=== PATIENT | female | born 1980 | race Asian ===

== ENCOUNTER 2022-07-27 20:46 | Emergency (ER) | payer OTHER, SELFPAY ==
[2022-07-27 20:52] VITALS: BP 144/88; PULSE 96; RESP 18; TEMP 37.1; O2SAT 97; BMI 32.6
--- NOTE | 2022-07-27 22:07 | ED.PSYCH ---
HPI - Psych General Chief Complaint: Psychiatric Problem/Disorder Stated Complaint: Panic Attack Time Seen by Provider: 07/27/22 21:40 History of Present Illness HPI Narrative: 42-year-old woman accompanied by her daughter to the emergency department with concern of sadness and anxiety that she might hurt herself. Has never struggled with mental health difficulties she says until her mother was diagnosed in March of this year with cancer. She notes number of other life stressors including, upon my inquiry, having from her though it sounds like they are still social together sometimes, does living separately at this time. Other pressures do include sitting on few boards. Over the last few weeks she has had a few panic attacks. She notes they have just come out of the blue. Yesterday she spent most of the day crying. Today would not have gotten out of bed if was not for friend who was able to coax her into going out to eat. This did help her feel better but then she returned home was feeling more stressed and was cutting bola in an effort to become more centered. And then seemed to take all she could manage to keep from hurting herself as she was holding this knife. Has not had these thoughts before. Was very fearful that she might do something. Began to breathe faster increasing anxiety heart racing and feeling tingly all over consistent with some panic attacks that she has identified recently. Daughter accompanies here who has also struggled with mental health difficulties. As we contemplate treatment, she does admit that has tried lorazepam for apparent anxiety; some had been around the house. She says she just did not like the way they made her feel. Does feel that sleep is a major problem. She tried some THC gummies recently at 5 mg. Says they just made her feel lethargic and tired and did not actually sleep. She thinks that if maybe she could actually get some sleep might be able to cope better. Related Data Home Medications Medication Instructions Recorded Confirmed No Known Home Medications 07/27/22 07/27/22 Allergies Allergy/AdvReac Type Severity Reaction Status Date / Time Penicillins Allergy Vomiting Verified 07/27/22 20:57 Review of Systems Status of ROS: Reports: 6 or more systems reviewed and unremarkable except as noted in History and below PFSH PFSH Social History Smoking Status: Never smoker How often do you have a drink containing alcohol: monthly or less AUDIT-C Alcohol total score: 1 Non-prescribed substance use details: cbd edibles, low dose Exam Narrative: Exam Narrative: Pleasant. Clearly stressed. Carefully groomed. Well nourished. Tearful. Breathing easily. Mood is sad and anxious affect appropriate. Speech isn't pressured or slurred. Skin is warm and dry without evidence of self-harm. Heart is within elevated rate and a regular rhythm. Well-perfused peripherally. Const: Vital Signs, click to edit/add: Vital Signs - 24 hr 07/27/22 20:52 Temperature 98.7 F Pulse Rate [Left P ulse Oximeter] 96 Respiratory Rate 18 Blood Pressure [Ri ght Upper Arm] 144/88 H Pulse Oximetry 97 Oxygen Delivery Me thod Room Air Documenting provider has reviewed patient's vital signs: yes Course Vital Signs Vital signs: Initial Vital Signs Temperature 98.7 F 07/27/22 20:52 Temperature Source Temporal Artery Scan 07/27/22 20:52 Pulse Rate 96 07/27/22 20:52 Respiratory Rate 18 07/27/22 20:52 Blood Pressure 144/88 H 07/27/22 20:52 Blood Pressure Mean 106 07/27/22 20:52 Blood Pressure Position Sitting 07/27/22 20:52 Pulse Oximetry 97 07/27/22 20:52 Oxygen Delivery Method 07/27/22 20:52 Vital Signs Temperature 98.7 F 07/27/22 20:52 Pulse Rate 96 07/27/22 20:52 Respiratory Rate 18 07/27/22 20:52 Blood Pressure 144/88 H 07/27/22 20:52 Pulse Oximetry 97 07/27/22 20:52 Oxygen Delivery Method 07/27/22 20:52 Temperature 98.7 F 07/27/22 20:52 Pulse Rate 96 07/27/22 20:52 Respiratory Rate 18 07/27/22 20:52 Blood Pressure 144/88 H 07/27/22 20:52 Pulse Oximetry 97 07/27/22 20:52 Oxygen Delivery Method 07/27/22 20:52 MDM - Psych MDM Narrative Medical decision making narrative: I think would benefit from therapy session here and possibly anxiolytic. Lengthy assessment by Tereso at DEC. Able to schedule outpatient psychiatric follow-up in short order. Concurs that outpatient is appropriate here. Will try to help her with sleep yet tonight with a couple tabs of Zyprexa. Discharge Plan Discharge Clinical Impression: Other social stressor, Anxiety, Panic attack Patient Disposition: Home w/ Parent or Adult Condition: Improved Additional Instructions: I understand you will be spending at least tonight with your friend Rhianna. Take these 2 tablets of Zyprexa with you. If needed for sleep take 1 and if not asleep in an hour take another. Please follow-up with appointments this coming week as scheduled by Lena; his paperwork should indicate those appointment specifics. I hope the new year is better to you. If after talking to friends, family, therapist you are still feeling unsafe, please return to the emergency department. Prescriptions: No Action No Known Home Medications Follow Up/Referrals: Provider,Not a Local [Primary Care Provider] - Stand Alone Forms: [employer] Info Instructions
[2022-07-28] MEDS: OLANZapine 5 MG TAB.RAPDIS PO ×2 (00:30)
--- NOTE | 2022-07-28 00:30 | ED.NURSE ---
Pt did sign and agree to safety contract provided by [employer].
== END 2022-07-28 00:40 | disposition home or self-care (01) ==
PROVIDERS: Emergency Provider Family Medicine
DX: F41.0 Panic disorder [episodic paroxysmal anxiety] (principal); F41.9 Anxiety disorder, unspecified; Z73.3 Stress, not elsewhere classified
CPT/HCPCS: 99283; 99284; A9270

== ENCOUNTER 2022-10-24 23:08 | Emergency (ER) | payer OTHER, SELFPAY ==
[2022-10-24 23:21] VITALS: BP 139/90; PULSE 82; RESP 18; TEMP 36.9; O2SAT 99; BMI 32.4
[2022-10-24 23:30] VITALS: O2SAT 99
[2022-10-25 01:02] LABS: Basophils Absolute Auto 0.04 K/uL (0.00-0.30); Basophils Percent Auto 0.4 % (0.0-3.0); Eosinophils Absolute Auto 0.24 K/uL (0.00-0.50); Eosinophils Percent Auto 2.4 % (0.0-7.0); Hematocrit 36.2 % (33.0-51.0); Hemoglobin* 12.1 gm/dL (12.0-16.0); Immature Granulocytes Abs Auto 0.02 K/uL (0.00-0.30); Immature Granulocytes Pct Auto 0.2 %; Lymphocytes Absolute Auto 2.32 K/uL (0.90-2.90); Lymphocytes Percent Auto 23.7 % (20-44); Mean Corpuscular HGB Conc 33 gm/dL (32-36); Mean Corpuscular Hemoglobin 27 pg (26-34); Mean Corpuscular Volume 79 fL (80-100); Monocytes Percent Auto 5.9 % (0.0-11.0); Neutrophils Percent Auto 67.4 % (42.0-72.0); Platelet Count* 369 K/uL (140-440); RDW Coefficient of Variation % 12.5 % (11.5-15.5); Red Blood Count 4.56 m/uL (4.00-5.20)
[2022-10-25 01:18] LABS: Chloride* 106 mmol/L (96-114); Potassium* 3.7 mmol/L (3.6-5.1); Sodium* 137 mmol/L (135-149)
[2022-10-25 01:20] LABS: Creatinine* 1.4 mg/dL (0.5-1.5); Est. Creatinine Clearance* 45.66; Estimated Glomerular Filt Rate 48 ml/min
[2022-10-25 01:21] LABS: Blood Urea Nitrogen* 20 mg/dL (5-24); Carbon Dioxide* 22 mmol/L (20-32); Glucose* 107 mg/dL (60-115)
[2022-10-25 01:27] LABS: D Dimer Quantitative* < 0.27 ug/ml (0.00-0.50)
[2022-10-25 01:28] LABS: Slide Review Reflex No
[2022-10-25 01:43] LABS: Troponin I* < 0.01 ng/mL (0.01-0.04)
--- NOTE | 2022-10-25 01:46 | ED_ITS ---
HPI - General Adult General Date Seen: 10/25/22 Chief complaint: Shortness of Breath/Dyspnea Stated complaint: chest pain,Shortness of breath Time Seen by Provider: 10/25/22 00:06 Source: patient Mode of arrival: ambulatory Limitations: no limitations History of Present Illness HPI narrative: Patient is a 42-year-old female who comes in with 90 minutes a history of chest tightness in some pain with deep inspiration. She also feels some aching into both arms. She had some friends over this evening and was just cleaning up the kitchen after they left with her symptoms came on. This was not physical work. She thought it might be anxiety related so she went and sat down. Her symptoms improved for a while up but then came back again prompting her to come to the emergency department. She has no history of exertional chest pain. She has no risk factors for coronary artery disease. She does acknowledge significant anxiety, particularly related to her mother's cancer diagnosis. She has been on lorazepam in the past but is not currently taking anything for anxiety or depression. She did not feel anxious this evening and not feel that she was worrying about anything in particular. She denies acid reflux symptoms. Related Data Home Medications Medication Instructions Recorded Confirmed No Known Home Medications 07/27/22 10/24/22 Allergies Allergy/AdvReac Type Severity Reaction Status Date / Time Penicillins Allergy Vomiting Verified 10/24/22 23:23 Review of Systems Narrative: Review of systems is outlined above otherwise noted to be negative. [facility] Medical History (Updated 10/25/22 @ 01:45 by Homero Cardenas MD) Anxiety ?F41.9 - Anxiety disorder, unspecified (ICD-10) Surgical History (Updated 10/24/22 @ 23:36 by Jt Garsia RN) History of tubal ligation ?Z98.51 - Tubal ligation status (ICD-10) Social History Smoking Status: Never smoker Second hand tobacco smoke exposure: No How often do you have a drink containing alcohol: monthly or less AUDIT-C Alcohol total score: 1 Non-prescribed substance use: denies use Non-prescribed substance use details: cbd edibles, low dose Exam Narrative: Exam Narrative: Vitals noted. HEENT: Conjunctiva clear. Tympanic membranes are pearly white bilaterally. Pos terior pharynx is clear without erythema or exudate. Neck is supple without adenopathy, thyromegaly, carotid bruit. Lungs: Clear to auscultation in all llanos. No wheezes, rales, rhonchi. Heart: Regular rate and rhythm without murmur. There is some mild tenderness along her costochondral joints. No palpable abnormalities in the chest. Minor discomfort with deep inspiration. Abdomen: Soft and nontender. No guarding, rigidity, rebound. Bowel sounds are normal. No palpable masses. Extremities: No cyanosis or edema. Good distal pulses. Skin: No abnormalities noted of the exposed skin. Neurologic: Awake, alert, fully oriented. Neurologic exam is nonfocal. Const: Vital Signs, click to edit/add: Vital Signs - 24 hr 10/24/22 23:21 10/24/22 23:30 10/25/22 02:09 Temperature 98.5 F 98.0 F Pulse Rate [Right Pulse Oximeter] 82 79 Respiratory Rate 18 18 Blood Pressure [Ri ght Upper Arm] 139/90 H 125/70 Pulse Oximetry 99 99 99 Oxygen Delivery Me thod Room Air Room Air 10/25/22 02:10 Temperature 98.0 F Pulse Rate [Right Pulse Oximeter] 79 Respiratory Rate 18 Blood Pressure [Ri ght Upper Arm] 125/70 Pulse Oximetry Oxygen Delivery Me thod Course Course Hospital Course: Patient seen and examined. I have low index of suspicion for coronary artery disease. Her EKG shows normal sinus rhythm with no acute ST or T-wave changes. Labs are ordered. Reevaluation(s) Reevaluation #1: Her labs have all returned with normal findings including troponin, basic metabolic panel, CBC, D-dimer. Her symptoms have completely resolved without treatment. I suspect that this was anxiety related and she tends to agree. Vital Signs Vital signs: Initial Vital Signs Respiratory Effort Normal, Spontaneous, Non-Labored 10/24/22 23:20 Respiratory Depth Normal 10/24/22 23:20 Respiratory Pattern Normal 10/24/22 23:20 Vital Signs Temperature 98.5 F 10/24/22 23:21 Pulse Rate 82 10/24/22 23:21 Respiratory Rate 18 10/24/22 23:21 Blood Pressure 139/90 H 10/24/22 23:21 Pulse Oximetry 99 10/24/22 23:21 Oxygen Delivery Method Room Air 10/24/22 23:21 Temperature 98.0 F 10/25/22 02:10 Pulse Rate 79 10/25/22 02:10 Respiratory Rate 18 10/25/22 02:10 Blood Pressure 125/70 10/25/22 02:10 Pulse Oximetry 99 10/25/22 02:09 Oxygen Delivery Method Room Air 10/25/22 02:09 Medical Decision Making Lab Data Labs: Lab Results 10/25/22 Range/Units 00:15 WBC 9.80 (4.50-11.00) K/uL RBC 4.56 (4.00-5.20) m/uL Hgb 12.1 (12.0-16.0) gm/dL Hct 36.2 (33.0-51.0) % MCV 79 L (80-100) fL MCH 27 (26-34) pg MCHC 33 (32-36) gm/dL RDW Coeff of Joseluis 12.5 (11.5-15.5) % Plt Count 369 (140-440) K/uL Neut % (Auto) 67.4 (42.0-72.0) % Lymph % (Auto) 23.7 (20-44) % [place] % (Auto) 5.9 (0.0-11.0) % Eos % (Auto) 2.4 (0.0-7.0) % Baso % (Auto) 0.4 (0.0-3.0) % Neut # (Auto) 6.60 (1.7-7.0) K/uL Lymph # (Auto) 2.32 (0.90-2.90) K/uL [place] # (Auto) 0.60 (0.00-0.90) K/UL Eos # (Auto) 0.24 (0.00-0.50) K/uL Baso # (Auto) 0.04 (0.00-0.30) K/uL D-Dimer Quant (PE/DVT) < 0.27 (0.00-0.50) ug/ml Sodium 137 (135-149) mmol/L Potassium 3.7 (3.6-5.1) mmol/L Chloride 106 (96-114) mmol/L Carbon Dioxide 22 (20-32) mmol/L BUN 20 (5-24) mg/dL Creatinine 1.4 (0.5-1.5) mg/dL Estimated Creat Clear 45.66 Estimated GFR 48 ml/min Glucose 107 (60-115) mg/dL Calcium 9.0 (8.4-10.6) mg/dL Troponin I < 0.01 L (0.01-0.04) ng/mL Discharge Plan Discharge Clinical Impression: Panic attack, Chest pain Patient Disposition: Home, Self-Care Condition: Improved Additional Instructions: Tylenol or Ibuprofen for arm pain. Consider seeing your PCP to discuss anxiety meds if this recurs. Prescriptions: No Action No Known Home Medications Follow Up/Referrals: Deedee Valladares MD [Primary Care Provider] - Stand Alone Forms: [employer] Info Instructions
[2022-10-25 02:09] VITALS: BP 125/70; PULSE 79; RESP 18; TEMP 36.7; O2SAT 99
[2022-10-25 02:10] VITALS: BP 125/70; PULSE 79; RESP 18; TEMP 36.7
== END 2022-10-25 02:11 | disposition home or self-care (01) ==
PROVIDERS: Emergency Provider Family Medicine; PCP Family Medicine
DX: R07.89 Other chest pain (principal); F41.0 Panic disorder [episodic paroxysmal anxiety]
CPT/HCPCS: 36415; 80048; 84484; 85025; 85379; 93005; 94761; 99283; 99284

== ENCOUNTER 2023-09-13 21:55 | Outpatient (CLI) | payer OTHER, SELFPAY ==
--- OUTSIDE RECORDS SUMMARY | 2023-09-15 10:49 | XMS_ITS | Clinical Summary ---
Author Name Unknown Organization [facility] Address [place], [place] [address] Care Team Providers Care Medical Transcription Editor Name Role Phone Pcp, No Primary Care Provider Unavailabl e Allergies Active Allergy Reactions Criticality Noted Date Comments Penicillin G Rash,Vomiting 04/17/2016 Medications Medication Sig Dispensed Refills Start Date End Date Status multivitamin (MVI) tablet Take 1 tablet by mouth once daily. 0 04/17/2016 Active Active Problems No known active problems Immunizations Name Administration Dates Next Due COVID-19 vaccine (Kyrie-J&J) VINICIUS MARKHAM 1 Tdap 06/06/2022 Family History Medical History Relation Name Comments Good Health Father Cancer-breast Maternal Aunt x 2 Cancer Mother b-cell lymphoma Good Health Mother Cancer-breast Other 3 cousins, Mat Relation Name Status Comments Father Maternal Aunt Mother Other Social History Tobacco Use Types Packs/Day Years Used Date Smoking Tobacco: Never Smokeless Tobacco: Never Tobacco Cessation:Counseling Given: Yes Alcohol Use Standard Drinks/Week Comments Yes 0 (1 standard drink = 0.6 oz pur e alcohol) occasional PHQ-2 Answer Date Recorded PHQ-2 TOTAL SCORE 1 06/06/2022 Social Connections Answer Date Recorded Frequency of Communication with Friends and Fami ly Not on file 06/06/2022 Sex and Gender Information Value Date Recorded Sex Assigned at Not on file Gender Identity Not on file Sexual Orientation Not on file Obstetrics History Last Filed Vital Signs Vital Sign Reading Time Taken Comments Blood Pressure 114/74 06/06/2022 10:52 AM [employer] Pulse 81 06/06/2022 10:52 AM [employer] Temperature 37.2 ??C (99 ??F) 04/17/2016 9:14 AM CDT Respiratory Rate - - Oxygen Saturation 97% 06/06/2022 10:52 AM [employer] Inhaled Oxygen Concentration - - Weight 87.2 kg (192 lb 3.2 oz) 06/06/2022 10:52 AM [employer] Height 161 cm (5' 3.39) 04/17/2016 9:14 AM CDT Body Mass Index 33.63 04/17/2016 9:14 AM CDT Plan of Treatment Health Maintenance Due Date Last Done Comments HIV for age 15-65 1996 Hepatitis C screening for ag e 18-79 1999 Pap test for age 21-65 2002 BMI (ht and wt on same day) for age 18+ 04/17/2017 04/17/2016 COVID-19 vaccine series ( season) 2023 03/22/2021 Influenza for age 9-49 03/28/2023 Depression screening for age 12+ 06/06/2023 06/06/2022, 04/17/2016, 04/17/2016 Tetanus booster 06/06/2032 06/06/2022 Tdap Completed 06/06/2022 Pneumococcal series for age 6-64 Aged Out No longer eligible b ased on patient's age to complete this topic Care Teams Medical Transcription Editor Relationship Specialty Start Date End Date Pcp, No . PCP - General 12/13/19
== END 2023-09-13 21:56 | disposition home or self-care (01) ==
LOC: AMB 09-15 10:47
PROVIDERS: PCP Family Medicine; Visit Provider Family Medicine
DX: R10.9 Unspecified abdominal pain (principal); R55 Syncope and collapse
CPT/HCPCS: A0998

== ENCOUNTER 2023-10-08 20:59 | Outpatient (CLI) | payer OTHER, SELFPAY | END 2023-10-08 21:00 | disposition home or self-care (01) | LOC: AMB 10-10 11:59 | PROVIDERS: PCP Family Medicine; Visit Provider Emergency Medicine | DX: R06.09 Other forms of dyspnea (principal) | CPT/HCPCS: A0998 ==